=== PATIENT | female | born 1960 | race Caucasian/White ===

== ENCOUNTER 2017-02-24 15:59 | Emergency (ER) | payer OTHER ==
[~2017-02-24] VITALS: Ht 165.1 cm; Wt 93.9 kg
[~2017-02-24 15:59] MED LIST: ACET-2863 PO; AMLO10TA2 PO; IPRA14.7 IH; METO100T98 PO; NITR0.4T2 SL; OLAN5TAB29 PO; OMEP40EC1 PO; ONDA8ODT2 PO; PARO40TA65 PO; RIFA550T PO; TRAZ-307 PO; VITA20002 PO
[2017-02-24 16:18] VITALS: BP 125/76
[2017-02-24] MEDS ORDERED: KETOROLAC 30 MG/ML VIAL IVP ONE (17:35)
[2017-02-24 18:10] LABS: BASOPHILS # (AUTO) 0.1 K/uL (0.00-0.22); EOSINOPHILS # (AUTO) 0.1 K/uL (0-0.4); LYMPHOCYTES # (AUTO) 0.6 K/uL (2.5-16.5); MONOCYTES # (AUTO) 0.3 K/uL (0.8-1.0); PLATELET COUNT (AUTO) 68 K/uL (140-450)
[2017-02-24 18:14] LABS: BASOPHILS % (AUTO) 2.8 % (0.0-2.0); EOSINOPHILS % (AUTO) 3.4 % (0.0-4.0); HEMATOCRIT 26.5 % (36-48); HEMOGLOBIN 9.3 g/dL (12.0-16.0); LYMPHOCYTES % (AUTO) 23.7 % (20.5-51.1); MEAN CORPUSCULAR HEMOGLOBIN 35 pg (27-31); MEAN CORPUSCULAR HGB CONC 35 g/dL (33-37); MEAN CORPUSCULAR VOLUME 101 fL (80-94); NEUTROPHILS # (AUTO) 1.6 K/uL (1.8-7.7); NEUTROPHILS % (AUTO) 60.1 % (42.2-75.2); RED BLOOD CELL COUNT(AUTO) 2.63 MIL/uL (4.20-5.40); RED CELL DISTRIBUTION WIDTH 14.6 % (11.6-13.7); WHITE BLOOD COUNT (AUTO) 2.7 K/uL (4.8-10.8)
[2017-02-24] MEDS ORDERED: MECL-272 PO (18:15)
[2017-02-24] MEDS ORDERED: ALBU3SOL21 IH (18:15)
[2017-02-24] MEDS ORDERED: ISOS10TA9 PO (18:15)
[2017-02-24] MEDS ORDERED: FOLI1TAB90 PO (18:15)
[2017-02-24] MEDS ORDERED: COM5 PO (18:15)
[2017-02-24] MEDS ORDERED: TRAZ-286 PO (18:15)
[2017-02-24] MEDS ORDERED: VITD1000 PO (18:15)
[2017-02-24] MEDS ORDERED: VAS10 PO (18:15)
[2017-02-24] MEDS ORDERED: ACET-7169 PO (18:15)
[2017-02-24] MEDS ORDERED: DIVA500T1 PO (18:15)
[2017-02-24] MEDS ORDERED: ATI.5 PO (18:15)
[2017-02-24] MEDS ORDERED: TRAM50TA1 PO (18:15)
[2017-02-24] MEDS ORDERED: FLUO40CA6 PO (18:15)
[2017-02-24] MEDS ORDERED: SPIR25TA PO (18:15)
[2017-02-24] MEDS ORDERED: FERR325E14 PO (18:15)
[2017-02-24] MEDS ORDERED: OMEP20TC12 PO (18:15)
[2017-02-24] MEDS ORDERED: LACT10SO1 PO (18:15)
[2017-02-24 18:21] LABS: ANION GAP 9.7 (8-16); CARBON DIOXIDE 25.7 mmol/L (21-32); CREATININE 1.1 mg/dL (0.6-1.3); POTASSIUM 4.4 mmol/L (3.5-5.1)
[2017-02-24 18:27] LABS: ALBUMIN 2.5 g/dL (3.4-5.0); TOTAL BILIRUBIN 0.7 mg/dL (0.0-1.0)
[2017-02-24 18:32] LABS: APPEARANCE,URINE HAZY (CLEAR); BILIRUBIN,URINE 1+ (NEGATIVE); BLOOD, URINE NEGATIVE (NEGATIVE); COLOR,URINE YELLOW (YELLOW); LEUKOCYTE ESTERASE ,URINE NEGATIVE (NEGATIVE); NITRITE, URINE NEGATIVE (NEGATIVE); UGLUCOSE NEGATIVE (NEGATIVE)
[2017-02-24 18:36] LABS: PROTHROMBIN TIME 11.7 secs (10.8-13.4)
[2017-02-24 18:42] LABS: BARBITURATE, URINE NEG. ng/ml (NEG <=200); BENZODIAZEPINE, URINE NEG. ng/mL (NEG <=200); CANNABINOID, URINE NEG. ng/mL (NEG <=50); COCAINE, URINE NEG. ng/mL (NEG <=300); OPIATE, URINE NEG. ng/mL (NEG <=2000); PHENCYCLIDINE SCREEN,URINE NEG. ng/mL (NEG <=25)
[2017-02-24 18:57] LABS: RBC,URINE 0-5 (RARE) /HPF (0-5); WBC,URINE 0-5 (RARE) /HPF (0-5)
[2017-02-24 19:36] VITALS: BP 138/77
== END 2017-02-24 19:37 | disposition home or self-care (01) ==
LOC: MED 15:59
DX: K74.60 Unspecified cirrhosis of liver (principal); G93.40 Encephalopathy, unspecified; J45.909 Unspecified asthma, uncomplicated; I10 Essential (primary) hypertension; F41.9 Anxiety disorder, unspecified; F32.9 Major depressive disorder, single episode, unspecified; G40.909 Epilepsy, unspecified, not intractable, without status epilepticus; Z90.49 Acquired absence of other specified parts of digestive tract; Z88.6 Allergy status to analgesic agent; Z79.899 Other long term (current) drug therapy
CPT/HCPCS: 36415; 70450; 71045; 80053; 80305; 81001; 82140; 83690; 83880; 84484; 85025; 85610; 85730; 93005; 96374; 99285; J1885; Q0092

== ENCOUNTER 2017-03-02 10:23 | Observation (INO) | payer OTHER ==
[~2017-03-02] VITALS: Ht 165.1 cm; Wt 89.8 kg
[~2017-03-02 10:23] MED LIST changes: -ACET-2863 PO; +ACET-7169 PO; +ALBU3SOL21 IH; -AMLO10TA2 PO; +ATI.5 PO; +COM5 PO; +DIVA500T1 PO; +FERR325E14 PO; +FLUO40CA6 PO; +FOLI1TAB90 PO; -IPRA14.7 IH; +ISOS10TA9 PO; +LACT10SO1 PO; +MECL-272 PO; -METO100T98 PO; -NITR0.4T2 SL; -OLAN5TAB29 PO; +OMEP20TC12 PO; -OMEP40EC1 PO; -ONDA8ODT2 PO; -PARO40TA65 PO; -RIFA550T PO; +SPIR25TA PO; +TRAM50TA1 PO; +TRAZ-286 PO; -TRAZ-307 PO; +VAS10 PO; -VITA20002 PO; +VITD1000 PO
[2017-03-02 10:29] VITALS: BP 122/74
[2017-03-02] MEDS ORDERED: NACL 0.9% 1,000 ML IV ONE (11:00)
[2017-03-02] MEDS ORDERED: ALBUTEROL 0.083% 2.5 MG/3 ML NEBU INH ONE (11:05)
[2017-03-02 11:17] LABS: WHITE BLOOD COUNT (AUTO) 2.2 K/uL (4.8-10.8)
[2017-03-02 11:20] LABS: HEMATOCRIT 26.4 % (36-48); HEMOGLOBIN 9.2 g/dL (12.0-16.0); MEAN CORPUSCULAR HEMOGLOBIN 36 pg (27-31); MEAN CORPUSCULAR HGB CONC 35 g/dL (33-37); MEAN CORPUSCULAR VOLUME 103 fL (80-94); PLATELET COUNT (AUTO) 83 K/uL (140-450); RED BLOOD CELL COUNT(AUTO) 2.57 MIL/uL (4.20-5.40); RED CELL DISTRIBUTION WIDTH 15.2 % (11.6-13.7)
[2017-03-02] MEDS ORDERED: KETOROLAC 30 MG/ML VIAL IM ONE (11:25)
[2017-03-02] MEDS ORDERED: ACETAMINOPHEN EXTRA STRENGTH 500 MG TAB PO ONE (11:25)
[2017-03-02] MEDS ORDERED: KETOROLAC 30 MG/ML VIAL IVP ONE (11:25)
[2017-03-02 11:35] LABS: EOSINOPHILS % (MANUAL) 4 % (0-4); LYMPHOCYTES % (MANUAL) 21 % (20-46); MONOCYTES % (MANUAL) 11 % (5-12)
[2017-03-02 11:40] LABS: POTASSIUM 3.7 mmol/L (3.5-5.1)
[2017-03-02 11:41] LABS: ANION GAP 6.7 (8-16); TOTAL BILIRUBIN 1.5 mg/dL (0.0-1.0)
[2017-03-02 11:42] LABS: ALBUMIN 2.5 g/dL (3.4-5.0)
[2017-03-02] MEDS ORDERED: PROCHLORPERAZINE 5 MG TAB PO PRN (12:00)
[2017-03-02] MEDS ORDERED: ONDANSETRON 4 MG/2 ML VIAL IVP PRN (12:00)
[2017-03-02] MEDS ORDERED: ACETAMINOPHEN 325 MG TAB PO PRN (12:00)
[2017-03-02] MEDS ORDERED: ASPIRIN 325 MG TAB PO ONE (12:00)
[2017-03-02] MEDS ORDERED: LORazepam 0.5 MG TAB PO PRN (12:00)
[2017-03-02] MEDS ORDERED: LORazepam 2 MG/ML VIAL IVP PRN (12:00)
[2017-03-02] MEDS ORDERED: ALBUTEROL 0.083% 2.5 MG/3 ML NEBU IH PRN (12:00)
[2017-03-02] MEDS ORDERED: MECLIZINE 25 MG TAB PO PRN (12:00)
[2017-03-02 13:01] LABS: CREATINE KINASE MB 0.4 ng/mL (0-3.6)
[2017-03-02 14:00] VITALS: BP 133/59
[2017-03-02] MEDS ORDERED: AZITHROMYCIN 500 MG in DEXTROSE 5% 250 ML IV SCH (14:00)
[2017-03-02] MEDS: traMADol 50 MG TAB PO PRN (14:52)
[2017-03-02] MEDS: ALBUTEROL SULFATE/IPRATROPIU 3 ML SOL IH SCH ×2 (15:17→20:32)
[2017-03-02 16:00] VITALS: BP 110/77
[2017-03-02] MEDS: FERROUS SULFATE 325 MG TABEC PO SCH (16:30)
[2017-03-02 20:00] VITALS: BP 113/65
[2017-03-02] MEDS ORDERED: HYDROcodone/APAP 5/325 MG 1 TAB TAB PO PRN (20:20)
[2017-03-02] MEDS ORDERED: DIVALPROEX 500 MG TABER PO SCH (21:00)
[2017-03-02] MEDS ORDERED: traZODone 50 MG TAB PO SCH (21:00)
[2017-03-02] MEDS: SPIRONOLACTONE 25 MG TAB PO SCH (21:10)
[2017-03-02] MEDS: ISOSORBIDE DINITRATE 10 MG TAB PO SCH (21:11)
[2017-03-03] VITALS: BP 120/76
[2017-03-03] MEDS: traMADol 50 MG TAB PO PRN (00:31)
[2017-03-03 04:00] VITALS: BP 125/79
[2017-03-03 04:22] LABS: HEMATOCRIT 22.3 % (36-48); HEMOGLOBIN 7.7 g/dL (12.0-16.0); MEAN CORPUSCULAR HEMOGLOBIN 36 pg (27-31); MEAN CORPUSCULAR HGB CONC 35 g/dL (33-37); MEAN CORPUSCULAR VOLUME 104 fL (80-94); PLATELET COUNT (AUTO) 68 K/uL (140-450); RED BLOOD CELL COUNT(AUTO) 2.15 MIL/uL (4.20-5.40); RED CELL DISTRIBUTION WIDTH 15.1 % (11.6-13.7); WHITE BLOOD COUNT (AUTO) 2.8 K/uL (4.8-10.8)
[2017-03-03 04:35] LABS: CARBON DIOXIDE 28.1 mmol/L (21-32); POTASSIUM 4.1 mmol/L (3.5-5.1)
[2017-03-03 05:29] LABS: EOSINOPHILS % (MANUAL) 5 % (0-4); LYMPHOCYTES % (MANUAL) 34 % (20-46); MONOCYTES % (MANUAL) 12 % (5-12)
[2017-03-03] MEDS: ALBUTEROL SULFATE/IPRATROPIU 3 ML SOL IH SCH ×2 (07:37→10:14)
[2017-03-03 08:00] VITALS: BP 125/69
[2017-03-03] MEDS ORDERED: ASPIRIN 81 MG TAB.CHEW PO SCH (09:00)
[2017-03-03] MEDS ORDERED: FLUoxetine 20 MG CAP PO SCH (09:00)
[2017-03-03] MEDS ORDERED: CHOLECALCIFEROL 1,000 IU TAB PO SCH (09:00)
[2017-03-03] MEDS ORDERED: ENALAPRIL 10 MG TAB PO SCH (09:00)
[2017-03-03] MEDS ORDERED: FOLIC ACID 1 MG TAB PO SCH (09:00)
[2017-03-03] MEDS: SPIRONOLACTONE 25 MG TAB PO SCH (09:25)
[2017-03-03] MEDS: FERROUS SULFATE 325 MG TABEC PO SCH (09:27)
[2017-03-03] MEDS: ISOSORBIDE DINITRATE 10 MG TAB PO SCH (09:27)
[2017-03-03 12:00] VITALS: BP 123/67
[2017-03-03 12:42] LABS: CREATINE KINASE MB 0.4 ng/mL (0-3.6)
== END 2017-03-03 13:40 | disposition home or self-care (01) ==
LOC: MED 10:23 → INTOOBSV 12:05 → MTU 12:05
PROVIDERS: ADMIT Hospitalist; ATTEND Hospitalist
DX: R07.2 Precordial pain (principal); J06.9 Acute upper respiratory infection, unspecified; K74.60 Unspecified cirrhosis of liver; B19.20 Unspecified viral hepatitis C without hepatic coma; F32.9 Major depressive disorder, single episode, unspecified; F41.9 Anxiety disorder, unspecified
CPT/HCPCS: 36415; 71045; 80048; 80053; 82550; 82553; 83735; 84484; 85025; 87081; 87804; 93005; 94640; 94760; 96361; 96365; 96367; 96375; 99285; G0378; J0456; J0696; J1885; J7030; J7060; J7613; J7620; Q0092; 96374

== ENCOUNTER 2017-03-08 15:58 | Emergency (ER) | payer OTHER ==
[~2017-03-08] VITALS: Ht 165.1 cm; Wt 88.9 kg
[2017-03-08 16:22] VITALS: BP 116/70
[2017-03-08] MEDS ORDERED: TRAMADOL HCL 50 MG TABLET (16:24)
[2017-03-08] MEDS ORDERED: BENZONATATE 100 MG CAPSULE (16:24)
[2017-03-08] MEDS ORDERED: ISOSORBIDE DINITRATE 5 MG (16:24)
[2017-03-08 17:16] LABS: BASOPHILS # (AUTO) 0.2 K/uL (0.00-0.22); EOSINOPHILS # (AUTO) 0.1 K/uL (0-0.4); HEMATOCRIT 31.3 % (36-48); HEMOGLOBIN 10.4 g/dL (12.0-16.0); LYMPHOCYTES # (AUTO) 1.4 K/uL (2.5-16.5); MEAN CORPUSCULAR HEMOGLOBIN 35 pg (27-31); MEAN CORPUSCULAR HGB CONC 33 g/dL (33-37); MEAN CORPUSCULAR VOLUME 105 fL (80-94); MONOCYTES # (AUTO) 0.5 K/uL (0.8-1.0); NEUTROPHILS # (AUTO) 1.7 K/uL (1.8-7.7); PLATELET COUNT (AUTO) 120 K/uL (140-450); RED BLOOD CELL COUNT(AUTO) 2.98 MIL/uL (4.20-5.40); RED CELL DISTRIBUTION WIDTH 14.9 % (11.6-13.7); WHITE BLOOD COUNT (AUTO) 3.9 K/uL (4.8-10.8)
[2017-03-08 17:43] LABS: ALBUMIN 2.6 g/dL (3.4-5.0); ANION GAP 10.5 (8-16); CARBON DIOXIDE 27.5 mmol/L (21-32)
[2017-03-08] MEDS ORDERED: ALBUTEROL SULFATE/IPRATROPIU 3 ML SOL IH ONE (21:20)
[2017-03-08] MEDS ORDERED: DEXAMETHASONE 10 MG/ML VIAL IM ONE (21:20)
[2017-03-08 21:37] LABS: APPEARANCE,URINE CLEAR (CLEAR); BILIRUBIN,URINE NEGATIVE (NEGATIVE); BLOOD, URINE NEGATIVE (NEGATIVE); COLOR,URINE YELLOW (YELLOW); LEUKOCYTE ESTERASE ,URINE NEGATIVE (NEGATIVE); NITRITE, URINE NEGATIVE (NEGATIVE); UGLUCOSE NEGATIVE (NEGATIVE)
[2017-03-08] MEDS ORDERED: IBUPROFEN 600 MG TAB PO ONE (21:50)
[2017-03-08] MEDS ORDERED: ACETAMINOPHEN EXTRA STRENGTH 500 MG TAB PO ONE (21:50)
[2017-03-08] MEDS ORDERED: DICYCLOMINE HCL LIQUID 10 MG/5 ML UDC PO ONE (23:15)
[2017-03-08] MEDS ORDERED: ALUMINUM HYD/MAG/SIMETHICONE 30 ML UDC PO ONE (23:15)
[2017-03-08] MEDS ORDERED: LIDOCAINE VISCOUS 2% 20 ML UDC PO ONE (23:15)
[2017-03-09] MEDS ORDERED: MORPHINE SULFATE 10 MG/ML SYR IM ONE (00:05)
[2017-03-09 00:33] VITALS: BP 111/73
== END 2017-03-09 00:33 | disposition home or self-care (01) ==
LOC: MED 15:58
DX: A08.4 Viral intestinal infection, unspecified (principal); K21.9 Gastro-esophageal reflux disease without esophagitis; D61.818 Other pancytopenia; D64.9 Anemia, unspecified; J45.909 Unspecified asthma, uncomplicated; I10 Essential (primary) hypertension; Z90.49 Acquired absence of other specified parts of digestive tract
CPT/HCPCS: 36415; 74022; 74176; 80053; 81003; 81025; 83690; 85025; 87804; 94640; 96372; 99285; J1100; J2270; J7620

== ENCOUNTER 2017-04-11 16:06 | Emergency (ER) | payer OTHER ==
[~2017-04-11] VITALS: Ht 165.1 cm; Wt 93.9 kg
[~2017-04-11 16:06] MED LIST changes: +BENZONATATE 100 MG CAPSULE; +ISOSORBIDE DINITRATE 5 MG; +TRAMADOL HCL 50 MG TABLET
[2017-04-11 16:25] VITALS: BP 126/73
[2017-04-11] MEDS ORDERED: MIDAZOLAM 2 MG/2 ML VIAL IM ONE (17:40)
[2017-04-11] MEDS ORDERED: LORazepam 2 MG/ML VIAL IM ONE (17:50)
[2017-04-11 18:40] VITALS: BP 126/73
== END 2017-04-11 18:40 | disposition home or self-care (01) ==
LOC: MED 16:06
DX: G25.2 Other specified forms of tremor (principal); J45.909 Unspecified asthma, uncomplicated; I10 Essential (primary) hypertension; F41.9 Anxiety disorder, unspecified; Z79.899 Other long term (current) drug therapy; Z91.018 Allergy to other foods
CPT/HCPCS: 82948; 96372; 99283; J2060; J2250

== ENCOUNTER 2017-05-07 16:19 | Inpatient (IN) | payer OTHER ==
[~2017-05-07] VITALS: Ht 165.1 cm; Wt 89.4 kg
[2017-05-07 16:28] VITALS: BP 96/58
--- NOTE | 2017-05-07 16:31 | NUR ---
Pt presents to ED with SOB, dizziness, and abdominal pain x1 day. Pt states loosing balance and having SOB at home x1 day. Pt respirations clear and regular throughout. Pt has cane but needs assist for transfer from wheel chair to ED bed. A&Ox4. VSS. ER MD aware. Continue to monitor.
[2017-05-07] MEDS ORDERED: NACL 0.9% 1,000 ML IV ONE (17:20)
[2017-05-07 17:36] LABS: APPEARANCE,URINE CLEAR (CLEAR); BILIRUBIN,URINE 1+ (NEGATIVE); BLOOD, URINE NEGATIVE (NEGATIVE); COLOR,URINE YELLOW (YELLOW); LEUKOCYTE ESTERASE ,URINE NEGATIVE (NEGATIVE); NITRITE, URINE NEGATIVE (NEGATIVE); UGLUCOSE NEGATIVE (NEGATIVE)
[2017-05-07 17:42] LABS: RBC,URINE 0-5 (RARE) /HPF (0-5); WBC,URINE 0-5 (RARE) /HPF (0-5)
--- NOTE | 2017-05-07 17:47 | NUR ---
Pt escorted to radiology via wheel chair with tech
[2017-05-07 17:51] LABS: BASOPHILS # (AUTO) 0.1 K/uL (0.00-0.22); BASOPHILS % (AUTO) 2.1 % (0.0-2.0); EOSINOPHILS # (AUTO) 0.1 K/uL (0-0.4); EOSINOPHILS % (AUTO) 3.7 % (0.0-4.0); HEMATOCRIT 30.9 % (36-48); HEMOGLOBIN 10.2 g/dL (12.0-16.0); LYMPHOCYTES # (AUTO) 0.9 K/uL (2.5-16.5); LYMPHOCYTES % (AUTO) 32.2 % (20.5-51.1); MEAN CORPUSCULAR HEMOGLOBIN 34 pg (27-31); MEAN CORPUSCULAR HGB CONC 33 g/dL (33-37); MONOCYTES # (AUTO) 0.2 K/uL (0.8-1.0); MONOCYTES % (AUTO) 9.3 % (1.7-9.3); NEUTROPHILS # (AUTO) 1.4 K/uL (1.8-7.7); NEUTROPHILS % (AUTO) 52.7 % (42.2-75.2); PLATELET COUNT (AUTO) 81 K/uL (140-450); RED BLOOD CELL COUNT(AUTO) 2.98 MIL/uL (4.20-5.40); RED CELL DISTRIBUTION WIDTH 12.6 % (11.6-13.7); WHITE BLOOD COUNT (AUTO) 2.7 K/uL (4.8-10.8)
[2017-05-07 18:05] LABS: ANION GAP 9.4 (8-16); CARBON DIOXIDE 26.9 mmol/L (21-32); CREATININE 1.2 mg/dL (0.6-1.3); POTASSIUM 4.3 mmol/L (3.5-5.1)
[2017-05-07 18:10] LABS: ALBUMIN 2.5 g/dL (3.4-5.0)
[2017-05-07] MEDS ORDERED: MORPHINE SULFATE 4 MG/ML SYR IVP ONE (18:15)
--- NOTE | 2017-05-07 19:15 | NUR ---
received report from ana cristina pt AWAKE, ALERT. BP 116/61. O2 SAT 98%.
[2017-05-07] MEDS ORDERED: ONDANSETRON 4 MG/2 ML VIAL IVP PRN (20:00)
[2017-05-07] MEDS ORDERED: ACETAMINOPHEN 325 MG TAB PO PRN (20:00)
[2017-05-07] MEDS ORDERED: HYDROcodone/APAP 5/325 MG 1 TAB TAB PO PRN ×2 (20:00→20:05)
--- NOTE | 2017-05-07 20:20 | NUR ---
TRANSFERRED PT TO 107 A BY GRAHAM,PT AWAKE, ALERT, NO S/S OF RESPIRATORY DISTRESS NOTED. BEDSIDE REPORT GIVEN.
--- NOTE | 2017-05-07 20:20 | NUR ---
;RECEIVED PT FROM ER VIA GRAHAM REPORT GIVEN AT BED SIDE PT IS AAOX4 AMBULATES WITH VERMIN EXTERMINATOR ON CANDLE POURER SR ,HL ON LEFT AC PATENT MRSA NARES PROTOCOL TAKEN AND SENT TO LAB. PT USING BSC VOIDING WELLPT IS ORIENTED TO THE FLOOR CALL LIGHT WITHIN REACH
[2017-05-07 20:30] VITALS: BP 110/62
[2017-05-07 20:57] LABS: BARBITURATE, URINE NEG. ng/ml (NEG <=200); BENZODIAZEPINE, URINE NEG. ng/mL (NEG <=200); CANNABINOID, URINE NEG. ng/mL (NEG <=50); COCAINE, URINE NEG. ng/mL (NEG <=300); OPIATE, URINE NEG. ng/mL (NEG <=2000); PHENCYCLIDINE SCREEN,URINE NEG. ng/mL (NEG <=25)
--- NOTE | 2017-05-07 23:00 | NUR ---
PT IS ASSISTED TO USED BSC VOIDING WELL NOT DISTRESS NOTED ON TELEMETRY SR
[2017-05-07] MEDS: MORPHINE SULFATE 2 MG/ML SYR IVP PRN (23:43)
[2017-05-07] MEDS: ZOLPIDEM 5 MG TAB PO PRN (23:44)
[2017-05-08] VITALS: BP 91/50
--- NOTE | 2017-05-08 01:00 | NUR ---
AFTER PAIN MEDIC GIVEN PT SLEEPS QUIET NOT DISTRESS NOTE ON TELEMETRY SR
[2017-05-08] MEDS: NACL 0.9% 1,000 ML IV SCH ×2 (03:42→13:00)
[2017-05-08 04:00] VITALS: BP 90/43
--- NOTE | 2017-05-08 04:00 | NUR ---
SPONGE BATH GIVEN LINEN CHANGED PT ON TELEMETRY SB IV ON LEFT AC INFUSING WELL NOT DISTRESS NOTED
--- NOTE | 2017-05-08 05:39 | NUR ---
PT USING BSC VOIDING WELL NOT DISTRESS NOTED
--- NOTE | 2017-05-08 06:37 | NUR ---
PT RESTING ON BED RESTING ON BED ON TELEMETRY SR DENIES ANY KLPAIN AT THIS;TIME PT WILL BE ENDORSED TO DAY SHIFT NURSE TO CONTINUITY OF CARE
[2017-05-08 06:58] LABS: HEMATOCRIT 26.3 % (36-48); HEMOGLOBIN 8.9 g/dL (12.0-16.0); MEAN CORPUSCULAR HEMOGLOBIN 35 pg (27-31); MEAN CORPUSCULAR HGB CONC 34 g/dL (33-37); MEAN CORPUSCULAR VOLUME 103.4 fL (80-94); PLATELET COUNT (AUTO) 67 K/uL (140-450); RED BLOOD CELL COUNT(AUTO) 2.54 MIL/uL (4.20-5.40); RED CELL DISTRIBUTION WIDTH 12.6 % (11.6-13.7); WHITE BLOOD COUNT (AUTO) 2.7 K/uL (4.8-10.8)
--- NOTE | 2017-05-08 07:12 | NUR ---
RECEIVED REPORT FROM WAIVER ANALYST NURSE ANDREINA AT BEDSIDE FOR CONTINUITY OF CARE. PT IS AWAKE AND ORIENTED X3. INTRODUCED SELF AND UPDATED BOARD. LUNG SOUNDS CLEAR ON AUSCULTATION. PT DENIES PAIN. STATED DIZZINESS STILL THERE BUT BETTER LYING DOWN. RESTING COMFORTABLY IN BED. IV TO L AC 20G INTACT. NS AT 100ML/HR. SKIN WARM AND DRY. BED IN LOW POSITION, WHEELS LOCKED, CALL LIGHT WITHIN REACH. BSC NEXT TO BED. WILL CONTINUE TO MONITOR.
[2017-05-08 08:00] VITALS: BP 98/42
[2017-05-08] MEDS ORDERED: MECLIZINE 25 MG TAB PO PRN (08:20)
[2017-05-08] MEDS ORDERED: NON-FORMULARY ITEM (Oxycodone HCl/Acetaminophen (Oxycodone-Acetaminophen 10-325) 1 TAB) PO PRN (08:20)
[2017-05-08] MEDS ORDERED: LORazepam 0.5 MG TAB PO PRN (08:20)
[2017-05-08] MEDS ORDERED: traMADol 50 MG TAB PO PRN (08:20)
[2017-05-08 08:40] LABS: ALBUMIN 2.1 g/dL (3.4-5.0); ANION GAP 9.3 (8-16); CARBON DIOXIDE 27.1 mmol/L (21-32); CREATININE 1.2 mg/dL (0.6-1.3); POTASSIUM 4.4 mmol/L (3.5-5.1); TOTAL BILIRUBIN 0.7 mg/dL (0.0-1.0)
[2017-05-08] MEDS ORDERED: OMEPRAZOLE PO SCH (09:00)
[2017-05-08 09:16] LABS: EOSINOPHILS % (MANUAL) 3 % (0-4); LYMPHOCYTES % (MANUAL) 32 % (20-46); MONOCYTES % (MANUAL) 6 % (5-12)
[2017-05-08] MEDS ORDERED: FLUoxetine 20 MG CAP PO SCH (10:12)
[2017-05-08] MEDS ORDERED: FOLIC ACID 1 MG TAB PO SCH (10:19)
[2017-05-08] MEDS ORDERED: CHOLECALCIFEROL 1,000 IU TAB PO SCH (10:25)
--- NOTE | 2017-05-08 10:30 | NUR ---
PT UP AND OUT OF BED WITH PHYSICAL THERAPY. SEEN WALKING DOWN RICKETTS WITH WALKER AND STEADY GAIT.
[2017-05-08] MEDS: FAMOTIDINE 20 MG/2 ML VIAL IVP SCH (10:34)
--- NOTE | 2017-05-08 11:08 | NUR ---
PATIENT HAS BEEN SCREENED AND CATEGORIZED MODERATE NUTRITION RISK. PATIENT WILL BE SEEN WITHIN 3-5 DAYS OF ADMISSION. 05/10/17 - 05/12/[address]
--- NOTE | 2017-05-08 11:15 | NUR ---
CALLED PT'S DAUGHTER AND INFORMED HER FOR D/C TODAY AND PROBATION AND PAROLE OFFICER TIME 1PM Addendum: 05/08/17 at 1117 by Kriss Ward RN CHARTED ON WRONG PT
[2017-05-08] MEDS ORDERED: oxyCODONE/APAP 5/325 MG 1 TAB TAB PO PRN (11:20)
[2017-05-08] MEDS ORDERED: ALBUTEROL SULFATE/IPRATROPIU 3 ML SOL IH SCH (11:30)
[2017-05-08 12:00] VITALS: BP 106/60
[2017-05-08] MEDS ORDERED: NON-FORMULARY ITEM (Lactulose 30 ML) PO SCH (12:00)
[2017-05-08] MEDS: LACTULOSE 20 GM/30 ML UDC PO SCH ×2 (12:11→17:08)
[2017-05-08] MEDS: MORPHINE SULFATE 2 MG/ML SYR IVP PRN ×2 (13:30→19:33)
--- NOTE | 2017-05-08 13:30 | NUR ---
PT COMPLAINED OF PAIN ON ABD 10/21. PT REQUESTED MORPHINE FOR PAIN. ADMINISTERED MORPHINE IVP. PT TOLERATED WELL. SITTING UP IN BED. NO LABORED BREATHING. BED IN LOW POSITION, WHEELS LOCKED, CALL LIGHT WITHIN REACH. WILL CONTINUE TO MONITOR.
[2017-05-08 15:32] LABS: FOLIC ACID > 20.00 ng/mL (>3.0)
[2017-05-08 16:00] VITALS: BP 118/58
--- NOTE | 2017-05-08 16:24 | NUR ---
CHECKED ON PT IN ROOM. PT GOT UP TO USE BSC WITH STANDBY ASSIST. PT SITTING UP IN BED. TALKING ON PHONE. NO COMPLAINTS AT THIS TIME. WILL CONTINUE TO MONITOR.
--- NOTE | 2017-05-08 18:00 | NUR ---
PT IS EATING DINNER TRAY. PT ASKED FOR HAMBURGER. EDUCATED PT ON CARDIAC DIET AND THAT SHE CANNOT HAVE A HAMBURGER. VERBALIZED UNDERSTANDING. ON THE PHONE RIGHT NOW. NO SIGNS OF DISTRESS. CALL LIGHT WITHIN REACH. WILL CONTINUE MONITOR.
--- NOTE | 2017-05-08 19:28 | NUR ---
ENDORSED PT TO MINE SAFETY MANAGER NURSE PATRICIA AT BEDSIDE FOR CONTINUITY OF CARE. PT IN STABLE CONDITION.
--- NOTE | 2017-05-08 19:33 | NUR ---
RECEIVED PT AWAKE ON BED, COMPLAINING OF PAIN, VITAL SIGNS STABLE, MEDICATED PRN FOR PAIN WITH MORPHINE IVP, IVF INFUSING WELL, PLAN OF CARE DISCUSSED, SAFETY MEASURES IN PLACE, CALL LIGHT WITHIN REACH.
[2017-05-08 20:00] VITALS: BP 119/67
[2017-05-08] MEDS: diphenhydrAMINE 12.5 MG/5 ML UDC PO SCH (20:35)
[2017-05-08] MEDS: ZOLPIDEM 5 MG TAB PO PRN (20:44)
[2017-05-08] MEDS ORDERED: DIVALPROEX 500 MG TABER PO SCH (21:00)
[2017-05-08] MEDS ORDERED: traZODone 50 MG TAB PO SCH (21:00)
--- NOTE | 2017-05-08 22:38 | NUR ---
PT COMPLAINING OF ABDOMINAL PAIN, MADE AWARE THAT MORPHINE IS NOT YET DUE, MADE AWARE OF NEXT DUE TIME, OFFERED PAIN PILL BUT PT REFUSED, WILL WAIT FOR MORPHINE DOSE, REPOSITION FOR COMFORT, MONITORED CLOSELY.
--- NOTE | 2017-05-08 23:40 | NUR ---
PT SLEEPING, EASILY AROUSABLE BUT DISORIENTED, REORIENT TO TIME AND PLACE, VITAL SIGNS STABLE, NO SOB NOTED, INQUIRING IF IT'S TIME FOR HER MORPHINE, MADE AWARE OF DUE TIME, IVF INFUSING WELL, CONTINUE TO MONITOR CLOSELY.
[2017-05-09] VITALS: BP 102/53
[2017-05-09] MEDS: LACTULOSE 20 GM/30 ML UDC PO SCH ×3 (00:26→11:39)
[2017-05-09] MEDS: NACL 0.9% 1,000 ML IV SCH ×2 (00:27→09:00)
--- NOTE | 2017-05-09 00:30 | NUR ---
ASSISTED TO BEDSIDE COMMODE, VOIDED FREELY, , WILL MEDICATE PRN FOR PAIN WHEN DUE.
--- NOTE | 2017-05-09 03:40 | NUR ---
PT SLEEPING, EASILY AORUSABLE, VITAL SIGNS STABLE, NO SIGNS OF PAIN, IVF INFUSING WELL, MONITORED CLOSELY.
[2017-05-09 04:00] VITALS: BP 106/58
[2017-05-09] MEDS: MORPHINE SULFATE 2 MG/ML SYR IVP PRN ×2 (05:23→11:40)
--- NOTE | 2017-05-09 05:30 | NUR ---
ASSISTED TO BEDSIDE COMMODE, WITH MODERATE BM, MEDICATED PRN FOR PAIN WITH MORPHINE IVP, DUE LACTULOSE TAKEN, MONITORED CLOSELY.
--- NOTE | 2017-05-09 07:27 | NUR ---
PT SLEEPING, NO SIGNS OF DISTRESS, BEDSIDE REPORT GIVEN TO RUSS LAY FOR CONTINUITY OF CARE.
--- NOTE | 2017-05-09 07:28 | NUR ---
RECEIVED REPORT FROM SYSTEMS SOFTWARE MANAGER NURSE PATRICIA AT BEDSIDE FOR CONTINUITY OF CARE. PT IS AWAKE AND ORIENTED. INTRODUCED SELF AND UPDATED BOARD. NO SOB OR RESPIRATORY DISTRESS. LUNG SOUND CLEAR ON AUSCULTATION. ON RA O2 SAT 96%. PT ASKING FOR PAIN MEDICATION. REMINDED PT THAT SHE ALREADY HAD BEEN MEDICATED. PT VERBALIZED UNDERSTAING. BSC NEXT TO BED. CALL LIGHT WITHIN REACH. WILL CONTINUE TO MONITOR.
[2017-05-09 07:36] LABS: HEMATOCRIT 29.3 % (36-48); HEMOGLOBIN 9.7 g/dL (12.0-16.0); MEAN CORPUSCULAR HEMOGLOBIN 34 pg (27-31); MEAN CORPUSCULAR HGB CONC 33 g/dL (33-37); MEAN CORPUSCULAR VOLUME 103.9 fL (80-94); PLATELET COUNT (AUTO) 76 K/uL (140-450); RED BLOOD CELL COUNT(AUTO) 2.82 MIL/uL (4.20-5.40)
[2017-05-09 07:43] LABS: ALBUMIN 2.3 g/dL (3.4-5.0); ANION GAP 9.8 (8-16); CARBON DIOXIDE 25.5 mmol/L (21-32); CREATININE 1.1 mg/dL (0.6-1.3); POTASSIUM 4.3 mmol/L (3.5-5.1); TOTAL BILIRUBIN 0.8 mg/dL (0.0-1.0)
[2017-05-09 08:00] VITALS: BP 128/58
--- NOTE | 2017-05-09 08:55 | NUR ---
CM NOTE INITIAL REVIEW FAXED TO [facility] [phone] YUE # [phone]
[2017-05-09] MEDS ORDERED: PANTOPRAZOLE 40 MG TABEC PO SCH (09:00)
[2017-05-09] MEDS ORDERED: FLUoxetine 20 MG CAP PO SCH ×2 (09:00)
[2017-05-09] MEDS ORDERED: FOLIC ACID 1 MG TAB PO SCH (09:00)
[2017-05-09] MEDS ORDERED: CHOLECALCIFEROL 1,000 IU TAB PO SCH (09:00)
[2017-05-09] MEDS: FAMOTIDINE 20 MG/2 ML VIAL IVP SCH (09:17)
[2017-05-09] MEDS: diphenhydrAMINE 12.5 MG/5 ML UDC PO SCH (09:39)
--- NOTE | 2017-05-09 10:30 | NUR ---
PT MOVED TO ROOM 108B. ASSISTED TO BATHROOM. WILL CONTINUE TO MONITOR.
--- NOTE | 2017-05-09 11:40 | NUR ---
PT UP AND OUT OF BED WITH PHYSICAL THERAPY. WALKING DOWN RICKETTS WITH STEADY GAIT.
[2017-05-09 12:00] VITALS: BP 110/72
[2017-05-09 13:13] LABS: EOSINOPHILS % (MANUAL) 9 % (0-4); LYMPHOCYTES % (MANUAL) 38 % (20-46); MONOCYTES % (MANUAL) 16 % (5-12)
[2017-05-09] MEDS ORDERED: ACET-2869 PO (14:26)
[2017-05-09] MEDS ORDERED: ZOLP5TAB1 PO (14:28)
--- NOTE | 2017-05-09 15:50 | NUR ---
PT D/C TO GO HOME. GAVE D/C FORMS, INSTRUCTIONS, RX, AND FOLLOW UP APPOINTMENT TO PT. PT VERBALIZED UNDERSTANDING AND SIGNED FORMS. D/C IV TO L WRIST AND L FA. IV CATHETER TIPS INTACT. APPLIED DRESSING AND PRESSURE TO SITE. NO BLEEDING NOTED. REMOVED ID BAND AND TELE MONITOR. PT CHANGED IN OWN CLOTHES AND LEFT WITH ALL PERSONAL BELONGINGS. LEFT UNIT VIA WHEELCHAIR ACCOMPANIED BY SPECIMEN ACCESSIONER. LEFT IN STABLE CONDITION.
--- NOTE | 2017-05-10 13:12 | NUR ---
D/C summary faxed to [facility] at [phone]
== END 2017-05-09 15:50 | disposition home or self-care (01) | DRG 207 ==
LOC: MED 16:19 → MTU 20:03
PROVIDERS: ADMIT Hospitalist; ATTEND Hospitalist
DX: I95.2 Hypotension due to drugs (principal); E43 Unspecified severe protein-calorie malnutrition; K70.30 Alcoholic cirrhosis of liver without ascites; K31.84 Gastroparesis; I10 Essential (primary) hypertension; F32.9 Major depressive disorder, single episode, unspecified; F41.9 Anxiety disorder, unspecified; J45.909 Unspecified asthma, uncomplicated; G89.29 Other chronic pain; T50.2X5A Adverse effect of carbonic-anhydrase inhibitors, benzothiadiazides and other diuretics, initial encounter; Z91.018 Allergy to other foods; Z79.899 Other long term (current) drug therapy; Z90.49 Acquired absence of other specified parts of digestive tract; Z28.21 Immunization not carried out because of patient refusal; D46.9 Myelodysplastic syndrome, unspecified
CPT/HCPCS: 36415; 70450; 74018; 80053; 80305; 81001; 82140; 82150; 82607; 82746; 82948; 83690; 85025; 87081; 96374; 97110; 97116; 97530; 99285; J2270; J2405; J3490; J7030; J8597; Q0092; Q0163

== ENCOUNTER 2017-06-06 18:05 | Emergency (ER) | payer OTHER ==
[~2017-06-06] VITALS: Ht 165.1 cm; Wt 88.9 kg
[~2017-06-06 18:05] MED LIST changes: +ACET-2869 PO; -ALBU3SOL21 IH; -COM5 PO; -FERR325E14 PO; -ISOS10TA9 PO; -SPIR25TA PO; -VAS10 PO; +ZOLP5TAB1 PO
[2017-06-06 18:30] VITALS: BP 118/72
--- NOTE | 2017-06-06 18:34 | NUR ---
pt to lobby awaiting avaiable bed. gcs=15. rr are even and unlabored. vss. no acute distress at this time.
--- NOTE | 2017-06-06 19:10 | NUR ---
TO ER CHAIR A
--- NOTE | 2017-06-06 19:27 | NUR ---
Patient being evaluated by DR. PA at bedside.
--- NOTE | 2017-06-06 19:30 | NUR ---
57Y/F PT. PRESENTS TO ED WITH C/O COUGH. ALSO STATES ABDOMINAL PAIN AND DIZZINESS. HX. LIVER CHIRRHOSIS, DEPRESSION. AAO X4, AMBULATORY WITH STEDAY GAIT. GCS 15. RESPIRATIONSS RA, EVEN AND UNLABORED, C/O NON PRODUCTIVE COUGH. ABDOMEN SOFT, NON TENDER, ACTIVE BS X 4. C/O BACK PAIN AND ABDOMINAL PAIN 10/10. VSS, ER MD MADE AWARE OF PT. STATUS.
[2017-06-06] MEDS ORDERED: NACL 0.9% 1,000 ML IV ONE (19:31)
[2017-06-06] MEDS ORDERED: ONDANSETRON 4 MG/2 ML VIAL IVP ONE (19:35)
[2017-06-06] MEDS ORDERED: MORPHINE SULFATE 4 MG/ML SYR IVP ONE (19:35)
[2017-06-06 19:54] LABS: APPEARANCE,URINE SL CLOUDY (CLEAR); BLOOD, URINE TRACE-I (NEGATIVE); COLOR,URINE YELLOW (YELLOW); LEUKOCYTE ESTERASE ,URINE NEGATIVE (NEGATIVE); NITRITE, URINE NEGATIVE (NEGATIVE); UGLUCOSE NEGATIVE (NEGATIVE)
[2017-06-06 20:04] LABS: BILIRUBIN,URINE NEGATIVE (NEGATIVE)
[2017-06-06 20:06] LABS: RBC,URINE 3-10 (FEW) /HPF (0-5); URINE AMORPHOUS URATE 2+ /HPF (None Seen); WBC,URINE 0-5 (RARE) /HPF (0-5)
[2017-06-06 20:10] LABS: BASOPHILS % (AUTO) 0.6 % (0.0-2.0); EOSINOPHILS # (AUTO) 0.2 K/uL (0-0.4); EOSINOPHILS % (AUTO) 4.8 % (0.0-4.0); HEMATOCRIT 29.8 % (36-48); HEMOGLOBIN 10.2 g/dL (12.0-16.0); LYMPHOCYTES # (AUTO) 1.2 K/uL (2.5-16.5); LYMPHOCYTES % (AUTO) 35.7 % (20.5-51.1); MEAN CORPUSCULAR HEMOGLOBIN 35 pg (27-31); MEAN CORPUSCULAR HGB CONC 34 g/dL (33-37); MEAN CORPUSCULAR VOLUME 103.4 fL (80-94); MONOCYTES # (AUTO) 0.4 K/uL (0.8-1.0); MONOCYTES % (AUTO) 12.7 % (1.7-9.3); NEUTROPHILS # (AUTO) 1.6 K/uL (1.8-7.7); NEUTROPHILS % (AUTO) 46.2 % (42.2-75.2); PLATELET COUNT (AUTO) 78 K/uL (140-450); RED BLOOD CELL COUNT(AUTO) 2.88 MIL/uL (4.20-5.40); RED CELL DISTRIBUTION WIDTH 13.2 % (11.6-13.7); WHITE BLOOD COUNT (AUTO) 3.5 K/uL (4.8-10.8)
[2017-06-06 20:20] LABS: ANION GAP 12.6 (8-16); CARBON DIOXIDE 23.8 mmol/L (21-32); CREATININE 1.3 mg/dL (0.6-1.3); POTASSIUM 4.4 mmol/L (3.5-5.1)
[2017-06-06 20:25] LABS: TOTAL BILIRUBIN 0.8 mg/dL (0.0-1.0)
--- NOTE | 2017-06-06 20:35 | NUR ---
MOVED TO ER BED 2
--- NOTE | 2017-06-06 20:50 | NUR ---
Patient appears to be resting comfortably in bed. Vital Signs within normal limits. Respirations even and unlabored.
[2017-06-06 21:18] VITALS: BP 111/66
--- NOTE | 2017-06-06 21:18 | NUR ---
Note ericone in EDM - 06/06/17 at 2119 by MED D Patient discharged with v/s stable. Written and verbal after care instructions given and explained. Patient alert, oriented and verbalized understanding of instructions. Ambulatory with steady gait. All questions addressed prior to discharge. ID band removed. Patient advised to follow up with PMD. Rx of BENTYL 20 MG given. Patient educated on indication of medication including possible reaction and side effects. Opportunity to ask questions provided and answered.
== END 2017-06-06 21:18 | disposition home or self-care (01) ==
LOC: MED 18:05
DX: R10.30 Lower abdominal pain, unspecified (principal); J45.909 Unspecified asthma, uncomplicated; I10 Essential (primary) hypertension; Z88.6 Allergy status to analgesic agent; Z79.899 Other long term (current) drug therapy; Z98.890 Other specified postprocedural states
CPT/HCPCS: 36415; 74176; 80053; 81001; 81025; 83690; 85025; 96361; 96374; 96375; 99285; J2270; J2405; J7030

== ENCOUNTER 2017-06-09 16:42 | Inpatient (IN) | payer OTHER ==
[~2017-06-09] VITALS: Ht 165.1 cm; Wt 88.5 kg
[2017-06-09 16:45] VITALS: BP 100/65
--- NOTE | 2017-06-09 16:52 | NUR ---
PATIENT PRESENTS TO ED WITH C/O back pain, headache, gen weakness, since yesterday . DENIES N/V/D; SKIN IS PINK/WARM/DRY; AAOX4 WITH EVEN AND STEADY GAIT; LUNGS CLEAR BL; HR EVEN AND REGULAR; PT DENIES ANY FEVER, CP, SOB, OR COUGH AT THIS TIME; PATIENT STATES PAIN OF 9/10 AT THIS TIME; VSS; PATIENT POSITIONED FOR COMFORT; HOB ELEVATED; BEDRAILS UP X2; BED DOWN. ER MD MADE AWARE OF PT STATUS.
--- NOTE | 2017-06-09 16:52 | NUR ---
PT AMBULATES TO BED4
--- NOTE | 2017-06-09 16:54 | NUR ---
DR PEREIRA EVALUATING AAO PT AT BEDSIDE
[2017-06-09] MEDS ORDERED: MORPHINE SULFATE 4 MG/ML SYR IVP ONE (17:00)
[2017-06-09] MEDS ORDERED: PROCHLORPERAZINE 10 MG/2 ML VIAL IVP ONE (17:00)
[2017-06-09] MEDS ORDERED: NACL 0.9% 1,000 ML IV ONE ×2 (17:00→22:30)
[2017-06-09 17:54] LABS: PROTHROMBIN TIME 12.7 secs (10.8-13.4)
[2017-06-09 18:00] LABS: ALBUMIN 2.4 g/dL (3.4-5.0); ANION GAP 11.4 (8-16); ASPARTATE AMINOTRANSFERASE 29 U/L (15-37); CARBON DIOXIDE 24.4 mmol/L (21-32); CHLORIDE 110 mmol/L (98-107); CREATININE 1.3 mg/dL (0.6-1.3); GFR ARICAN-AMERICAN 54 mL/min (>90); GLUCOSE 210 mg/dL (74-106); LIPASE 150 U/L (73-393); MAGNESIUM 1.5 mg/dL (1.8-2.4); PHOSPHORUS 3.4 mg/dL (2.5-4.9); POTASSIUM 3.8 mmol/L (3.5-5.1); SODIUM SERUM 142 mmol/L (136-145); TOTAL BILIRUBIN 0.7 mg/dL (0.0-1.0); UREA NITROGEN, BLOOD 13 mg/dL (7-18)
--- NOTE | 2017-06-09 18:12 | NUR ---
PT RESTING COMFORTABLY, NO C/O PAIN AT THIS TIME, WILL CONTINUE TO MONITOR
[2017-06-09 18:29] LABS: BASOPHILS % (AUTO) 0.5 % (0.0-2.0); EOSINOPHILS # (AUTO) 0.1 K/uL (0-0.4); EOSINOPHILS % (AUTO) 3.4 % (0.0-4.0); HEMATOCRIT 25.3 % (36-48); HEMOGLOBIN 8.6 g/dL (12.0-16.0); LYMPHOCYTES # (AUTO) 0.6 K/uL (2.5-16.5); LYMPHOCYTES % (AUTO) 30.2 % (20.5-51.1); MEAN CORPUSCULAR HEMOGLOBIN 36 pg (27-31); MEAN CORPUSCULAR HGB CONC 34 g/dL (33-37); MEAN CORPUSCULAR VOLUME 104.9 fL (80-94); MONOCYTES # (AUTO) 0.2 K/uL (0.8-1.0); MONOCYTES % (AUTO) 9.5 % (1.7-9.3); NEUTROPHILS # (AUTO) 1.1 K/uL (1.8-7.7); NEUTROPHILS % (AUTO) 56.4 % (42.2-75.2); PLATELET COUNT (AUTO) 64 K/uL (140-450); RED BLOOD CELL COUNT(AUTO) 2.41 MIL/uL (4.20-5.40); RED CELL DISTRIBUTION WIDTH 13.4 % (11.6-13.7)
[2017-06-09 18:40] LABS: VALPROIC ACID < 3 ug/ml (50-100)
--- NOTE | 2017-06-09 19:19 | NUR ---
REPORT GIVEN TO RUSS GRANT FOR CONTINUATION OF CARE
--- NOTE | 2017-06-09 19:43 | NUR ---
Patient will be admitted to care of GROBLER. Admited to MS. Will go to room 105A. Belongings list completed. BEDSIDE Report to EMELY SOLANO.
--- NOTE | 2017-06-09 19:45 | NUR ---
PATIENT ADMITTED FOR OBSERVATION. NO SIGNS AND SYMPTOMS OF DISTRESS NOTED. PATIENT ABLE TO AMBULATE WITH CANE FROM GURNEY TO BED. PATIENT AOX4. IV SITE NOTED ON LEFT AC, SALINE LOCKED. PLAN OF CARE DISCUSSED WITH PATIENT. PATIENT VERBALIZED UNDERSTANDING. BED IN LOWEST POSITION, SIDE RAILS UP AND FALL RISK PROTOCOL IN PLACE. WILL CONTINUE TO MONITOR
[2017-06-09 21:05] VITALS: BP 98/50
--- NOTE | 2017-06-09 22:08 | NUR ---
SPOKE TO DR. RICARDO ON THE PHONE. ORDERS RECEIVED.
--- NOTE | 2017-06-09 22:09 | NUR ---
ASKED DR. RICARDO IF HE WANTED TO RESUME HER HOME MEDS. HE SAID TO HOLD HER HOME MEDS FOR NOW.
[2017-06-09] MEDS ORDERED: ONDANSETRON 4 MG/2 ML VIAL IVP PRN (22:10)
[2017-06-09] MEDS ORDERED: MAG SULF 2000 MG/WATER PREMIX 50 ML IV SCH (22:30)
--- NOTE | 2017-06-09 22:41 | NUR ---
MAG RIDER 2G/50ML ADMINISTERED VIA PIGGYBACK TO NORMAL SALINE. TO RUN AT 25ML/HR FOR 2 HOURS.
--- NOTE | 2017-06-09 22:41 | NUR ---
IVF STARTED NORMAL SALINE 1000ML BAG TO RUN AT 50ML/HR.
--- NOTE | 2017-06-10 00:41 | NUR ---
MAG RIDER FINISHED. IVF NS RESUMED, RUNNING AT 50ML/HR
--- NOTE | 2017-06-10 02:54 | NUR ---
CHECKED ON PATIENT. PATIENT IS ASLEEP. NO SIGNS AND SYMPTOMS OF DISTRESS NOTED. BREATHING EVEN AND UNLABORED. WILL CONTINUE TO MONITOR.
--- NOTE | 2017-06-10 03:29 | NUR ---
ASSISTED PATIENT TO THE RESTROOM. PATIENT AMBULATED WITH CANE. PATIENT VOIDED. ASSISTED HER BACK TO BED. PATIENT TOLERATED WELL
[2017-06-10 04:00] VITALS: BP 95/47
[2017-06-10 06:37] LABS: BASOPHILS % (AUTO) 0.4 % (0.0-2.0); EOSINOPHILS # (AUTO) 0.1 K/uL (0-0.4); EOSINOPHILS % (AUTO) 5.7 % (0.0-4.0); HEMATOCRIT 24.4 % (36-48); HEMOGLOBIN 8.2 g/dL (12.0-16.0); LYMPHOCYTES # (AUTO) 0.8 K/uL (2.5-16.5); MEAN CORPUSCULAR HEMOGLOBIN 36 pg (27-31); MEAN CORPUSCULAR HGB CONC 34 g/dL (33-37); MEAN CORPUSCULAR VOLUME 105.1 fL (80-94); MONOCYTES # (AUTO) 0.2 K/uL (0.8-1.0); MONOCYTES % (AUTO) 10.2 % (1.7-9.3); NEUTROPHILS # (AUTO) 0.9 K/uL (1.8-7.7); NEUTROPHILS % (AUTO) 42.7 % (42.2-75.2); PLATELET COUNT (AUTO) 64 K/uL (140-450); RED BLOOD CELL COUNT(AUTO) 2.32 MIL/uL (4.20-5.40); RED CELL DISTRIBUTION WIDTH 13.5 % (11.6-13.7)
--- NOTE | 2017-06-10 07:11 | NUR ---
RECEIVED BEDSIDE REPORT FROM NIGHTSHIFT NURSE AT BEDSIDE. PATIENT IS LYING IN SEMI-FOWLERS POSITION. PATIENT IS SLEEPING AT THIS TIME BUT AROUSABLE TO NAME. PATIENT'S RESPIRATIONS ARE WITHIN NORMAL LIMITS. NO SIGNS OF PAIN AT THIS TIME. PATIENT HAS AN IV NOTED ON HER LEFT AC 20G RUNNING 50 ML/HR. RESPIRATIONS WITHIN NORMAL LIMITS. NO COMPLAINTS OF PAIN AT THIS TIME. WILL CONTINUE TO MONITOR PATIENT.
--- NOTE | 2017-06-10 07:11 | NUR ---
PATIENT REPORT GIVEN TO MORNING NURSE AT BEDSIDE. PATIENT IS IN STABLE CONDITION.
[2017-06-10 07:42] LABS: ANION GAP 10.4 (8-16); CARBON DIOXIDE 26.2 mmol/L (21-32); POTASSIUM 4.6 mmol/L (3.5-5.1)
[2017-06-10 07:43] LABS: CREATININE 1.1 mg/dL (0.6-1.3)
[2017-06-10 07:57] LABS: TOTAL BILIRUBIN 0.7 mg/dL (0.0-1.0)
[2017-06-10 07:58] LABS: ALBUMIN 2.2 g/dL (3.4-5.0)
[2017-06-10 08:00] VITALS: BP 95/44
--- NOTE | 2017-06-10 08:05 | NUR ---
PATIENT AWAKE AT THIS TIME IN SEMI-FOWLERS POSITION. PATIENT IS ALERT AND ORIENTED X3. NO DISTRESS NOTED. WILL CONTINUE TO MONITOR PATIENT.
--- NOTE | 2017-06-10 11:13 | NUR ---
PATIENT LAYING IN SEMI-FOWLERS POSITION. PATIENT TALKING ON PHONE WITH FAMILY MEMBER. NO SIGNS OF RESPIRATORY DISTRESS OR RESPIRATORY DEPRESSION. NO COMPLAINTS OF PAIN. WILL CONTINUE TO MONITOR PATIENT.
--- NOTE | 2017-06-10 11:21 | NUR ---
PATIENT HAS BEEN SCREENED AND CATEGORIZED MODERATE NUTRITION RISK. PATIENT WILL BE SEEN WITHIN 3-5 DAYS OF ADMISSION. 06/12/17 06/14/[address]
--- NOTE | 2017-06-10 13:50 | NUR ---
CM NOTE INITIAL REVIEW FAXED TO [facility] [phone] YUE # [phone]
--- NOTE | 2017-06-10 15:07 | NUR ---
PATIENT RESTING IN BED AT THIS TIME WATCHING TELEVISION. PATIENT IS IN SEMI-FOWLERS POSITION. WILL CONTINUE TO MONITOR PATIENT.
[2017-06-10 16:00] VITALS: BP 111/54
--- NOTE | 2017-06-10 19:20 | NUR ---
GAVE REPORT TO NIGHTSHIFT NURSE AT BEDSIDE. PATIENT IN STABLE CONDITION.
--- NOTE | 2017-06-10 19:28 | NUR ---
RECEIVED PT REPORT FROM LOUIS AT BEDSIDE FOR CONTINUITY OF CARE. PT AAOX4. IV NOTED LAC 20G NS 50ML/HR PATENT AND INFUSING WELL. PT HAS NO S/S OF DISTRESS NO SOB ON RA. BED LOWERED CALL LIGHT WITHIN REACH. WILL CONTINUE TO MONITOR.
[2017-06-10] MEDS: LACTULOSE 20 GM/30 ML UDC PO SCH (20:15)
--- NOTE | 2017-06-10 22:47 | NUR ---
PT IS SLEEPING. NO SOB. NO S/S OF DISTRESS. WILL CONTINUE TO MONITOR.
[2017-06-10 23:13] VITALS: BP 101/49
--- NOTE | 2017-06-11 | NUR ---
PT URINATED ON THE FLOOR. CHANGED PT AND PT IS NOW RESTING ON BED. WILL CONTINUE TO MONITOR. Addendum: 06/11/17 at 0129 by Peggy Benson RN PT DID NOT URINATE ON THE FLOOR WRONG PT.
--- NOTE | 2017-06-11 01:26 | NUR ---
PT IS SLEEPING. NO SOB. NO S/S OF DISTRESS. WILL CONTINUE TO MONITOR.
--- NOTE | 2017-06-11 04:44 | NUR ---
PT SLEEPING WILL CONTINUE TO MONITOR.
--- NOTE | 2017-06-11 07:13 | NUR ---
RECEIVED REPORT AT BEDSIDE FROM NIGHTSHIFT NURSE. UPDATED ON PATIENT'S CONDITION. PATIENT HAS AN IV ON LEFT AC 20G. PATIENT DOES NOT PRESENT WITH ANY PAIN OR RESPIRATORY DISTRESS OR RESPIRATORY DEPRESSION. PATIENT IS ALERT AND ORIENTED X4. UPDATED BOARD IN PATIENT'S ROOM. LOWERED BED TO LOWEST SETTING. PATIENT HAS CALL LIGHT BY HER LEFT HAND. WILL CONTINUE TO MONITOR PATIENT.
--- NOTE | 2017-06-11 07:13 | NUR ---
GAVE REPORT TO DAYSHIFT NURSE AT BEDSIDE FOR CONTINUITY OF CARE.
[2017-06-11 08:00] VITALS: BP 116/61
--- NOTE | 2017-06-11 08:30 | NUR ---
PATIENT ASLEEP AT THIS TIME. NO COMPLAINTS OF PAIN. WILL CONTINUE TO MONITOR
[2017-06-11] MEDS ORDERED: BEN10 PO (08:39)
[2017-06-11] MEDS ORDERED: ALBU1SPR IH (08:39)
[2017-06-11] MEDS ORDERED: RIFA550T PO (08:39)
[2017-06-11] MEDS ORDERED: ONDA4ODT2 PO (08:39)
[2017-06-11] MEDS ORDERED: DIVA250T45 PO (08:39)
[2017-06-11] MEDS ORDERED: ATI.5 PO (08:39)
[2017-06-11] MEDS ORDERED: ISOS10TA9 PO (08:39)
[2017-06-11] MEDS ORDERED: GABA300C PO (08:39)
[2017-06-11] MEDS ORDERED: ERGO2000 PO (08:39)
[2017-06-11] MEDS ORDERED: FLUO40CA6 PO (08:39)
[2017-06-11] MEDS ORDERED: ZOLP5TAB1 PO (08:39)
[2017-06-11] MEDS ORDERED: FAMO-90 PO (08:39)
[2017-06-11] MEDS ORDERED: ESCI20TA PO (08:39)
[2017-06-11] MEDS ORDERED: VITD1000 PO (08:39)
[2017-06-11] MEDS ORDERED: SPIR50TA PO (08:39)
[2017-06-11] MEDS ORDERED: VAS10 PO (08:39)
[2017-06-11] MEDS: LACTULOSE 20 GM/30 ML UDC PO SCH (09:00)
[2017-06-11] MEDS ORDERED: LACT10SO1 PO (09:36)
--- NOTE | 2017-06-11 10:00 | NUR ---
PATIENT AWAKE AT THIS TIME. NO DISTRESS NOTED. WILL CONTINUE TO MONITOR PATIENT.
--- NOTE | 2017-06-11 11:25 | NUR ---
PATIENT UNDERSTOOD AND IS AWARE OF ALL DISCHARGE INSTRUCTIONS AND PRESCRIPTIONS. DISCONTINUED PATIENT'S IV LINE WITH CATHETER STILL INTACT. CUT OFF PATIENT'S IDENTIFICATION BAND. PATIENT GATHERED ALL BELONGINGS. WHEELED PATIENT TO LOBBY TO HER RIDE. PATIENT LEFT THE UNIT IN STABLE CONDITION.
--- NOTE | 2017-06-11 12:08 | NUR ---
CLINICAL INFORMATION FAXED TO YUE MANUEL AT [facility] [phone] AND PHONE [phone]
== END 2017-06-11 11:25 | disposition home or self-care (01) | DRG 422 ==
LOC: MED 16:42 → MTU 19:30 → OBSVTOIN 06-10 09:11
PROVIDERS: ADMIT Internal Medicine; ATTEND Internal Medicine
DX: E86.9 Volume depletion, unspecified (principal); D61.818 Other pancytopenia; E44.0 Moderate protein-calorie malnutrition; K70.30 Alcoholic cirrhosis of liver without ascites; E83.42 Hypomagnesemia; I10 Essential (primary) hypertension; J45.909 Unspecified asthma, uncomplicated; B19.20 Unspecified viral hepatitis C without hepatic coma; F32.9 Major depressive disorder, single episode, unspecified; F41.9 Anxiety disorder, unspecified; Z87.891 Personal history of nicotine dependence; Z91.018 Allergy to other foods; Z88.6 Allergy status to analgesic agent; Z68.32 Body mass index [BMI] 32.0-32.9, adult; Z98.891 History of uterine scar from previous surgery
CPT/HCPCS: 96361; 96374; 96375; 99285; G0378; 36415; 80053; 82140; 83690; 83735; 84100; 84484; 85025; 85610; 85730; 87081; 93005; 97110; 97116; 97140; 97530; 97535; J0780; J2270; J3475; J7030

== ENCOUNTER 2017-07-17 11:29 | Emergency (ER) | payer OTHER ==
[~2017-07-17] VITALS: Ht 165.1 cm; Wt 94.3 kg
[~2017-07-17 11:29] MED LIST changes: -ACET-2869 PO; -ACET-7169 PO; +ALBU1SPR IH; -ATI.5 PO; +BEN10 PO; -BENZONATATE 100 MG CAPSULE; +DIVA250T45 PO; -DIVA500T1 PO; +ESCI20TA PO; +FAMO-90 PO; +GABA300C PO; -ISOSORBIDE DINITRATE 5 MG; -OMEP20TC12 PO; +ONDA4ODT2 PO; +RIFA550T PO; +SPIR50TA PO; -TRAMADOL HCL 50 MG TABLET; -TRAZ-286 PO; +VAS10 PO; -ZOLP5TAB1 PO
[2017-07-17 11:33] VITALS: BP 112/75
--- NOTE | 2017-07-17 11:40 | NUR ---
WHEEL CHAIR ASSISTED TO BED 1, REPORT GIVEN TO RUSS HEATH
--- NOTE | 2017-07-17 11:45 | NUR ---
57F BIB FAMILY C/O 9/10 INTERMITTENT NON RADIATING NON PROVOKED MIDSTERNAL CHEST PAIN X "IN THE MORNING AROUND 8AM". PT REPORTS DIZZINESS AND SOB BUT DENIES N/V/D. RR ARE EVEN AND UNLABORED. COLOR IS WARM/DRY/COLOR APPRIORIATE FOR ETHNICITY. PT ALSO REPORTS OF 9/10 RT KNEE PAIN. MILAD INJURY. LIMITED ROM TO RT KNEE AND MILD SWELLING. PT IS AOX4. GCS=15. CLEAR SPEECH. PT TO CARDIAC, BLOOD PRESSURE, AND PULSE OX MONITORING. VSS. AWAITING FOR ER EVAL. WILL CONTINUE TO MONITOR.
[2017-07-17] MEDS ORDERED: ASPIRIN 325 MG TAB PO ONE (12:05)
[2017-07-17] MEDS ORDERED: NITROGLYCERIN 0.4 MG TAB SL ONE (12:05)
--- NOTE | 2017-07-17 12:40 | NUR ---
ER MD COBB BY BEDSIDE EXAMINING PATIENT
--- NOTE | 2017-07-17 12:40 | NUR ---
PULSE OX=98% ON RA; RR ARE EVEN AND UNLABORED; CLEAR SPEECH. NO RESP DISTRESS NOTED. INFORMED ER MD COBB. OXYGEN NC NOT NEEDED AT THIS. WILL CONTINUE TO MONITOR
[2017-07-17 12:43] LABS: BASOPHILS % (AUTO) 0.7 % (0.0-2.0); EOSINOPHILS % (AUTO) 1.8 % (0.0-4.0); HEMATOCRIT 30.1 % (36-48); HEMOGLOBIN 10.3 g/dL (12.0-16.0); LYMPHOCYTES # (AUTO) 0.9 K/uL (2.5-16.5); LYMPHOCYTES % (AUTO) 34.6 % (20.5-51.1); MEAN CORPUSCULAR HEMOGLOBIN 35 pg (27-31); MEAN CORPUSCULAR HGB CONC 34 g/dL (33-37); MEAN CORPUSCULAR VOLUME 103.6 fL (80-94); MONOCYTES # (AUTO) 0.3 K/uL (0.8-1.0); MONOCYTES % (AUTO) 9.6 % (1.7-9.3); NEUTROPHILS # (AUTO) 1.4 K/uL (1.8-7.7); NEUTROPHILS % (AUTO) 53.3 % (42.2-75.2); PLATELET COUNT (AUTO) 96 K/uL (140-450); RED BLOOD CELL COUNT(AUTO) 2.91 MIL/uL (4.20-5.40); RED CELL DISTRIBUTION WIDTH 13.5 % (11.6-13.7); WHITE BLOOD COUNT (AUTO) 2.7 K/uL (4.8-10.8)
[2017-07-17 12:48] LABS: ANION GAP 12.3 (8-16); CARBON DIOXIDE 25.3 mmol/L (21-32); CREATININE 1.1 mg/dL (0.6-1.3); POTASSIUM 4.6 mmol/L (3.5-5.1)
[2017-07-17 12:53] LABS: PROTHROMBIN TIME 12.4 secs (10.8-13.4)
[2017-07-17 12:56] LABS: ALBUMIN 2.8 g/dL (3.4-5.0); TOTAL BILIRUBIN 1.3 mg/dL (0.0-1.0)
--- NOTE | 2017-07-17 14:27 | NUR ---
Patient discharged with v/s stable. Written and verbal after care instructions given and explained. Patient alert, oriented and verbalized understanding of instructions. Ambulatory with steady gait. All questions addressed prior to discharge. ID band removed. Patient advised to follow up with PMD. Rx of Reglan and Acetaminophen given. Patient questioned discharge medication. ER MD Burgos by bedside explaining discharge medication and reason for prescriping and that is only what he is prescriping to patient. Patient educated on indication of medication including possible reaction and side effects. Opportunity to ask questions provided and answered. Patient refused to take discharge paperwork, left by bedside.
[2017-07-17 14:31] VITALS: BP 117/60
== END 2017-07-17 14:27 | disposition home or self-care (01) ==
LOC: MED 11:29
DX: R07.89 Other chest pain (principal); G89.29 Other chronic pain; J45.909 Unspecified asthma, uncomplicated; I10 Essential (primary) hypertension; F41.9 Anxiety disorder, unspecified; F32.9 Major depressive disorder, single episode, unspecified; Z90.49 Acquired absence of other specified parts of digestive tract; Z79.899 Other long term (current) drug therapy; Z88.8 Allergy status to other drugs, medicaments and biological substances; Z91.018 Allergy to other foods
CPT/HCPCS: 36415; 71045; 80053; 83880; 84484; 85025; 85610; 85730; 93005; 99285; Q0092

== ENCOUNTER 2017-07-26 14:47 | Emergency (ER) | payer OTHER ==
[~2017-07-26] VITALS: Ht 165.1 cm; Wt 94.3 kg
[~2017-07-26 14:47] MED LIST changes: -DIVA250T45 PO; -FOLI1TAB90 PO; -TRAM50TA1 PO; -VITD1000 PO
[2017-07-26 14:53] VITALS: BP 148/77
[2017-07-26] MEDS ORDERED: KETOROLAC 15 MG/ML VIAL IM ONE (17:40)
[2017-07-26] MEDS ORDERED: LORazepam 0.5 MG TAB PO ONE (17:40)
[2017-07-26 17:56] LABS: APPEARANCE,URINE CLEAR (CLEAR); BILIRUBIN,URINE NEGATIVE (NEGATIVE); BLOOD, URINE TRACE-L (NEGATIVE); COLOR,URINE YELLOW (YELLOW); LEUKOCYTE ESTERASE ,URINE NEGATIVE (NEGATIVE); NITRITE, URINE NEGATIVE (NEGATIVE); UGLUCOSE NEGATIVE (NEGATIVE)
[2017-07-26 18:17] LABS: BASOPHILS % (AUTO) 0.5 % (0.0-2.0); EOSINOPHILS # (AUTO) 0.1 K/uL (0-0.4); EOSINOPHILS % (AUTO) 2.8 % (0.0-4.0); HEMATOCRIT 25.5 % (36-48); LYMPHOCYTES # (AUTO) 1.3 K/uL (2.5-16.5); LYMPHOCYTES % (AUTO) 36.4 % (20.5-51.1); MEAN CORPUSCULAR HEMOGLOBIN 36 pg (27-31); MEAN CORPUSCULAR HGB CONC 35 g/dL (33-37); MEAN CORPUSCULAR VOLUME 100.7 fL (80-94); MONOCYTES # (AUTO) 0.5 K/uL (0.8-1.0); MONOCYTES % (AUTO) 14.9 % (1.7-9.3); NEUTROPHILS # (AUTO) 1.6 K/uL (1.8-7.7); NEUTROPHILS % (AUTO) 45.4 % (42.2-75.2); PLATELET COUNT (AUTO) 87 K/uL (140-450); RED BLOOD CELL COUNT(AUTO) 2.53 MIL/uL (4.20-5.40); RED CELL DISTRIBUTION WIDTH 13.2 % (11.6-13.7); WHITE BLOOD COUNT (AUTO) 3.5 K/uL (4.8-10.8)
[2017-07-26 18:21] LABS: BARBITURATE, URINE NEG. ng/ml (NEG <=200); BENZODIAZEPINE, URINE NEG. ng/mL (NEG <=200); CANNABINOID, URINE NEG. ng/mL (NEG <=50); COCAINE, URINE NEG. ng/mL (NEG <=300); OPIATE, URINE NEG. ng/mL (NEG <=2000); PHENCYCLIDINE SCREEN,URINE NEG. ng/mL (NEG <=25)
[2017-07-26 18:26] LABS: ANION GAP 10.1 (8-16); CARBON DIOXIDE 25.2 mmol/L (21-32); CREATININE 1.1 mg/dL (0.6-1.3); POTASSIUM 4.3 mmol/L (3.5-5.1)
[2017-07-26 18:32] LABS: ALBUMIN 2.6 g/dL (3.4-5.0); TOTAL BILIRUBIN 0.8 mg/dL (0.0-1.0)
[2017-07-26 19:01] VITALS: BP 130/64
== END 2017-07-26 19:01 | disposition home or self-care (01) ==
LOC: MED 14:47
DX: G89.29 Other chronic pain (principal); R10.9 Unspecified abdominal pain; R06.02 Shortness of breath; J45.909 Unspecified asthma, uncomplicated; I10 Essential (primary) hypertension; Z79.899 Other long term (current) drug therapy; Z91.018 Allergy to other foods; Z88.8 Allergy status to other drugs, medicaments and biological substances
CPT/HCPCS: 36415; 80053; 80305; 81003; 83690; 85025; 93005; 96372; 99285; J1885

== ENCOUNTER 2017-09-20 15:58 | Emergency (ER) | payer OTHER ==
[~2017-09-20] VITALS: Ht 165.1 cm; Wt 98.4 kg
[2017-09-20 16:13] VITALS: BP 118/71
--- NOTE | 2017-09-20 16:15 | NUR ---
57 Y/O F PRESENTS TO THE ED W/C/O DIZZINESS AND NAUSEA X2DAYS. NO NYSTAGMUS NOTED. PT STATED, "MY HOME HEALTH NURSE CAME AND SAW ME AND SAID I WAS DEHYDRATED AND NEED TO COME TO ER." PT ALSO C/O LOWER BACK PAIN AND PAIN ALL OVER HEAD 9/10 X2DAYS. PT DENIES V/D; SKIN IS INTACT, PINK/WARM/DRY; AAOX4, PERRL, WITH EVEN AND STEADY GAIT; LUNGS CLEAR BL, BREATHING UNLABORED; HR EVEN AND REGULAR, BL PERIPHERAL PULSES PRESENT; BS ACTIVE X4, NO TENDERNESS TO PALPATION, NO HEPATOSPLENOMEGALLY PALPATED, RESONANT TO PERCUSSION; PT DENIES ANY FEVER, CP, SOB, OR COUGH AT THIS TIME; PT STATES 9/10 PAIN AT THIS TIME; VSS; PATIENT POSITIONED FOR COMFORT; HOB ELEVATED; BEDRAILS UP X2; BED DOWN.
--- NOTE | 2017-09-20 16:16 | NUR ---
PT AMBULATES TO BED 6
--- NOTE | 2017-09-20 16:36 | NUR ---
DR HESTER EVALUATING PT AT BEDSIDE
--- NOTE | 2017-09-20 16:40 | NUR ---
REPORT TRANSFERED TO CHER SOLANO AT THIS TIME
[2017-09-20] MEDS ORDERED: PROMETHAZINE 25 MG/ML VIAL IM ONE (16:45)
[2017-09-20] MEDS ORDERED: METOCLOPRAMIDE 10 MG TAB PO ONE (16:45)
[2017-09-20] MEDS ORDERED: MECLIZINE 25 MG TAB PO ONE (16:45)
[2017-09-20] MEDS ORDERED: FAMOTIDINE 20 MG TAB PO ONE (16:45)
[2017-09-20 18:02] VITALS: BP 116/78
--- NOTE | 2017-09-20 18:03 | NUR ---
Patient discharged with v/s stable. Written and verbal after care instructions given and explained. Patient alert, oriented and verbalized understanding of instructions. Ambulatory with . All questions addressed prior to discharge. ID band removed. Patient advised to follow up with PMD. Rx of ANTIVERT given. Patient educated on indication of medication including possible reaction and side effects. Opportunity to ask questions provided and answered.
== END 2017-09-20 18:03 | disposition home or self-care (01) ==
LOC: MED 15:58
DX: R11.2 Nausea with vomiting, unspecified (principal); R51 Headache; J45.909 Unspecified asthma, uncomplicated; I10 Essential (primary) hypertension; Z88.6 Allergy status to analgesic agent; Z88.8 Allergy status to other drugs, medicaments and biological substances; Z79.899 Other long term (current) drug therapy; Z91.018 Allergy to other foods
CPT/HCPCS: 96372; 99284; J2550; J8597

== ENCOUNTER 2017-09-23 12:08 | Emergency (ER) | payer OTHER ==
[~2017-09-23] VITALS: Ht 165.1 cm; Wt 100.7 kg
[2017-09-23 12:12] VITALS: BP 102/59
--- NOTE | 2017-09-23 12:15 | NUR ---
PT AMBULATES TO BED 2
--- NOTE | 2017-09-23 12:38 | NUR ---
57 YO F BIB SELF W/ C/O LOWER ABD PAIN 11/20 THAT IS ACHING AND NON-RADIATING X THIS MORNING. PT DENIES N/V/D/C. REPORTS THAT SHE HAS BEEN EATING OKAY AND NO ISSUES W/ BM/URINARY. PT WAS JUST HERE ON SEPTEMBER 20. AAOX4. GCS 15, CMS INTACT. RR EVEN AND UNLABORED. LUNGS CLEAR. ABD SOFT, NON-TENDER. BOWEL SOUNDS ACTIVE X 4 QUADRANTS. ER MD NOTIFIED. PT NEEDS MET. SAFETY PRECAUTIONS IN PLACE. WILL CONTINUE TO MONITOR.
[2017-09-23] MEDS ORDERED: fentaNYL 0.05 MG/ML VIAL IVP ONE (12:40)
[2017-09-23] MEDS ORDERED: NACL 0.9% 1,000 ML IV ONE (12:40)
[2017-09-23 14:53] VITALS: BP 135/88
--- NOTE | 2017-09-23 14:54 | NUR ---
Patient discharged with v/s stable. Written and verbal after care instructions given and explained. Patient alert, oriented and verbalized understanding of instructions. Ambulatory with steady gait. All questions addressed prior to discharge. ID band removed. Patient advised to follow up with PMD. Rx of LACTULOSE AND MINERAL OIL given. Patient educated on indication of medication including possible reaction and side effects. Opportunity to ask questions provided and answered.
--- NOTE | 2017-10-03 09:34 | NUR ---
LATE ENTRY NORMAL SALINE START TIME 1320 END TIME 1454
== END 2017-09-23 14:54 | disposition home or self-care (01) ==
LOC: MED 12:08
DX: R10.32 Left lower quadrant pain (principal); R42 Dizziness and giddiness; J45.909 Unspecified asthma, uncomplicated; I10 Essential (primary) hypertension; Z88.6 Allergy status to analgesic agent; Z91.018 Allergy to other foods; Z79.899 Other long term (current) drug therapy
CPT/HCPCS: 74176; 81002; 81025; 96361; 96374; 99284; J3010; J7030

== ENCOUNTER 2017-09-23 18:32 | Emergency (ER) | payer OTHER ==
[~2017-09-23] VITALS: Ht 165.1 cm; Wt 100.7 kg
[2017-09-23 18:47] VITALS: BP 140/83
--- NOTE | 2017-09-23 18:49 | NUR ---
PT TRIAGED AND SENT TO ED LOBBY. EDMD AWARE OF PT STATUS.
--- NOTE | 2017-09-23 21:15 | NUR ---
57/F CAME IN ED, C/O 10/10 CRAMPING LOWER ABD PAIN, RADIATING THROUGHOUT ABD, X1 DAY. PT REPORTS SHE WAS SITTING WHEN THE PAIN STARTED. LBM TODAY. ABD SOFT ROUND TENDER TO TOUCH. PT REPORTS THROBBING HUANG. DENIES FEVER, N/V/D, DYSURIA. HX HTN, DEPRESSION, ANXIETY, GERD. RESEARCH PROFESSIONAL IN PLACE. ER MD MADE AWARE.
[2017-09-23] MEDS ORDERED: POLYETHYLENE GLYCOL 17 GM/PKT PO ONE (21:20)
[2017-09-23] MEDS ORDERED: SODIUM PHOSPHATE 118 ML ENEM RC ONE (21:20)
[2017-09-23] MEDS ORDERED: DICYCLOMINE 20 MG/2 ML VIAL IM ONE (21:20)
--- NOTE | 2017-09-23 22:00 | NUR ---
PT ABLE TO HAVE BM USING BEDSIDE COMMODE.
--- NOTE | 2017-09-23 22:39 | NUR ---
PT HAD MODERATE AMOUNT BROWN LOOSE BM. VSS, PT REPORTS 9/10 ABD PAIN AT THIS TIME. ALL NEEDS MET.
[2017-09-23 23:49] VITALS: BP 118/62
--- NOTE | 2017-09-23 23:49 | NUR ---
Patient discharged with v/s stable. Written and verbal after care instructions given and explained. Patient verbalized understanding. Ambulatory with steady gait. All questions addressed prior to discharge. Advised to follow up with PMD.
== END 2017-09-23 23:49 | disposition home or self-care (01) ==
LOC: MED 18:32
DX: R10.30 Lower abdominal pain, unspecified (principal); J45.909 Unspecified asthma, uncomplicated; I10 Essential (primary) hypertension; Z88.6 Allergy status to analgesic agent; Z88.8 Allergy status to other drugs, medicaments and biological substances; Z79.899 Other long term (current) drug therapy; Z90.49 Acquired absence of other specified parts of digestive tract; Z91.018 Allergy to other foods
CPT/HCPCS: 81025; 96372; 99283; J0500; 99284

== ENCOUNTER 2018-05-21 16:47 | Emergency (ER) | payer MEDICAID, OTHER ==
[~2018-05-21] VITALS: Ht 167.6 cm; Wt 108.9 kg
[~2018-05-21 16:47] MED LIST changes: +ENAL-197 PO; -VAS10 PO
[2018-05-21 16:55] VITALS: BP 124/67
--- NOTE | 2018-05-21 17:00 | NUR ---
PT SENT TO LOBBY TO WAIT FOR AVAILABLE BED.
--- NOTE | 2018-05-21 18:00 | NUR ---
PT AMBULATED TO BED 3.
--- NOTE | 2018-05-21 18:15 | NUR ---
PT BIB SELF TO THE ED WITH THE CHIEF C/O BURNINGA AND FREQUENCY OF URINATION X3 DAYS. PT ALSO REPORTS COUGH X2 WEEKS. LUNGS CLEAR. NO PHLEGM OR BLOOD IN COUGH. STATES PAIN 8/10 AT THIS TIME. DENIES FEVER. DENIES N/V/D. DENIES ANY OTHER PROBLEM. VSS. ER AWARE.
[2018-05-21 18:26] LABS: APPEARANCE,URINE CLEAR (CLEAR); BILIRUBIN,URINE NEGATIVE (NEGATIVE); BLOOD, URINE 1+ (NEGATIVE); COLOR,URINE YELLOW (YELLOW); LEUKOCYTE ESTERASE ,URINE NEGATIVE (NEGATIVE); NITRITE, URINE NEGATIVE (NEGATIVE); UGLUCOSE NEGATIVE (NEGATIVE)
[2018-05-21 18:42] LABS: WBC,URINE 0-5 /HPF (0-5)
--- NOTE | 2018-05-21 19:15 | NUR ---
REPORT GIVEN TO HANDLE ASSEMBLER RN FOR CONTNUITY OF CARE.
[2018-05-21 20:15] VITALS: BP 130/51
--- NOTE | 2018-05-21 20:15 | NUR ---
Patient discharged with v/s stable. Written and verbal after care instructions given and explained. Patient alert, oriented and verbalized understanding of instructions. Wheel Chair Assisted with steady gait. All questions addressed prior to discharge. ID band removed. Patient advised to follow up with PMD. Rx of MACROBID AND PYRIDIUM given. Patient educated on indication of medication including possible reaction and side effects. Opportunity to ask questions provided and answered.
== END 2018-05-21 20:15 | disposition home or self-care (01) ==
LOC: MED 16:47
DX: N39.0 Urinary tract infection, site not specified (principal); J45.909 Unspecified asthma, uncomplicated; K21.9 Gastro-esophageal reflux disease without esophagitis; I10 Essential (primary) hypertension; K74.60 Unspecified cirrhosis of liver; F41.9 Anxiety disorder, unspecified; F32.9 Major depressive disorder, single episode, unspecified; Z90.49 Acquired absence of other specified parts of digestive tract; Z98.890 Other specified postprocedural states; Z79.899 Other long term (current) drug therapy; Z88.6 Allergy status to analgesic agent; Z91.018 Allergy to other foods
CPT/HCPCS: 81001; 87086; 99283

== ENCOUNTER 2018-06-09 20:49 | Emergency (ER) | payer MEDICAID ==
[~2018-06-09] VITALS: Ht 162.6 cm; Wt 120.2 kg
--- NOTE | 2018-06-09 20:55 | NUR ---
PT TAKEN TO BED 6
[2018-06-09 21:00] VITALS: BP 150/80
--- NOTE | 2018-06-09 21:09 | NUR ---
58 YO F BIB SELF PRESENTS TO THE ED C/O SHARP 8/10 INTERMITTENT LOWER ABD PAIN THAT RADIATES TO LOWER BACK X 2 DAYS ACCOMPANIED BY HEARTBURN. PT DENIES NVD, CHEST PAIN, SOB. LAST BM: TODAY. DENIES DYSURIA, URINARY BURNING. -- ABD IS LARGE, SOFT, TENDER TO TOUCH. NO REBOUND TENDERNESS NOTED. BOWEL SOUNDS ACTIVE, PRESENT TO ALL 4 QUADRANTS. -- SKIN PINK, DRY, WARM. PMH-- CIRHOSSIS, HTN, DEPRESSION, ANXIETY. PT POSITIONED FOR COMFORT. HOB ELEVATED. SIDE RAIL UP X1. BED IN LOWEST POSITION. VSS. NO APPARENT DISTRESS AT THIS TIME.
[2018-06-09] MEDS ORDERED: DICYCLOMINE HCL LIQUID 20 MG, ALUMINUM HYD/MAG/SIMETHICONE 30 ML, LIDOCAINE VISCOUS 2% ... PO ONE ×3 (21:15)
[2018-06-09] MEDS ORDERED: KETOROLAC 30 MG/ML VIAL IM ONE (21:15)
[2018-06-09 21:31] LABS: APPEARANCE,URINE HAZY (CLEAR); COLOR,URINE YELLOW (YELLOW)
[2018-06-09 21:33] LABS: BILIRUBIN,URINE NEGATIVE (NEGATIVE); BLOOD, URINE 1+ (NEGATIVE); LEUKOCYTE ESTERASE ,URINE NEGATIVE (NEGATIVE); NITRITE, URINE NEGATIVE (NEGATIVE); PH,URINE 6.5 (5.0-9.0); UGLUCOSE NEGATIVE (NEGATIVE)
[2018-06-09 21:33] LABS: BASOPHILS % (AUTO) 0.7 % (0.0-2.0); EOSINOPHILS # (AUTO) 0.1 K/uL (0-0.4); EOSINOPHILS % (AUTO) 4.4 % (0.0-4.0); HEMATOCRIT 30.3 % (36-48); HEMOGLOBIN 10.5 g/dL (12.0-16.0); LYMPHOCYTES # (AUTO) 0.9 K/uL (2.5-16.5); LYMPHOCYTES % (AUTO) 29.6 % (20.5-51.1); MEAN CORPUSCULAR HEMOGLOBIN 34 pg (27-31); MEAN CORPUSCULAR HGB CONC 35 g/dL (33-37); MEAN CORPUSCULAR VOLUME 99.1 fL (80-94); MONOCYTES # (AUTO) 0.4 K/uL (0.8-1.0); MONOCYTES % (AUTO) 14.3 % (1.7-9.3); NEUTROPHILS # (AUTO) 1.6 K/uL (1.8-7.7); PLATELET COUNT (AUTO) 103 K/uL (140-450); RED BLOOD CELL COUNT(AUTO) 3.06 MIL/uL (4.20-5.40); RED CELL DISTRIBUTION WIDTH 14.3 % (11.6-13.7); WHITE BLOOD COUNT (AUTO) 3.1 K/uL (4.8-10.8)
--- NOTE | 2018-06-09 21:35 | NUR ---
PT TAKEN TO CT VIA RGUS.
[2018-06-09 21:42] LABS: WBC,URINE 0-5 /HPF (0-5)
--- NOTE | 2018-06-09 21:44 | NUR ---
PT RETURN FROM CT
[2018-06-09 21:46] LABS: ANION GAP 11.3 (8-16); CARBON DIOXIDE 25.8 mmol/L (21-32); POTASSIUM 4.1 mmol/L (3.5-5.1)
[2018-06-09 21:59] LABS: ALBUMIN 2.8 g/dL (3.4-5.0); TOTAL BILIRUBIN 0.7 mg/dL (0.0-1.0)
--- NOTE | 2018-06-09 22:08 | NUR ---
PT MOVED TO ER BED 8
[2018-06-09] MEDS ORDERED: MORPHINE SULFATE 4 MG/ML SYR IM ONE (22:15)
--- NOTE | 2018-06-09 22:22 | NUR ---
Ultrasound at bedside.
[2018-06-09 23:28] VITALS: BP 140/70
== END 2018-06-09 23:38 | disposition home or self-care (01) ==
LOC: MED 20:49
DX: K59.00 Constipation, unspecified (principal); D61.818 Other pancytopenia; K74.60 Unspecified cirrhosis of liver; J45.909 Unspecified asthma, uncomplicated; K21.9 Gastro-esophageal reflux disease without esophagitis; I10 Essential (primary) hypertension; Z79.2 Long term (current) use of antibiotics; Z79.899 Other long term (current) drug therapy; Z88.6 Allergy status to analgesic agent; Z91.018 Allergy to other foods
CPT/HCPCS: 36415; 74176; 76770; 80053; 81001; 81025; 83690; 85025; 87086; 96372; 99284; J1885; J2270; Q0092

== ENCOUNTER 2018-12-24 09:14 | Emergency (ER) | payer MEDICAID, OTHER ==
[~2018-12-24] VITALS: Ht 165.1 cm; Wt 122.5 kg
[2018-12-24 09:18] VITALS: BP 147/67
--- NOTE | 2018-12-24 09:21 | NUR ---
PT AMBULATED TO RESTROOM TO PROVIDE URINE SAMPLE
--- NOTE | 2018-12-24 09:25 | NUR ---
58 Y/O F PRESENTS TO ER C/O GENERALIZED ABDOMINAL PAIN SINCE 8AM. PAIN LEVEL 9/10, SHARP CONSTANT PAIN. DENIES N/V/D. PT ALSO C/O WAKING UP LIGHTHEADED AND SHAKINESS. PT ALSO REPORTS THAT SHE "FELT FORGETFUL" WHEN SHE AWOKE. CURRENTLY A&O X4. ANSWERING QUESTIONS APPROPRIATELY. PT ALSO C/O BURNING UPON URINATION X2DAYS, FREQUENCY. ALLERGIES: TYLENOL MED HX: ASTHMA, HTN, ANXIETY, AND DEPRESSION
[2018-12-24] MEDS ORDERED: KETOROLAC 60 MG/2 ML VIAL IM ONE (09:35)
[2018-12-24 10:17] LABS: APPEARANCE,URINE HAZY (CLEAR); BLOOD, URINE 3+ (NEGATIVE); COLOR,URINE ORANGE (YELLOW); PH,URINE 6.5 (5.0-9.0); UGLUCOSE NEGATIVE (NEGATIVE)
[2018-12-24 10:18] LABS: BILIRUBIN,URINE 1+ (NEGATIVE); LEUKOCYTE ESTERASE ,URINE NEGATIVE (NEGATIVE); NITRITE, URINE POSITIVE (NEGATIVE)
[2018-12-24 10:20] LABS: RBC,URINE 50-80 /HPF (0-5); WBC,URINE 0-5 /HPF (0-5)
--- NOTE | 2018-12-24 10:50 | NUR ---
PAIN LEVEL 9/10. ERMD MADE AWARE.
[2018-12-24 10:51] LABS: EOSINOPHILS # (AUTO) 0.1 K/uL (0-0.4); EOSINOPHILS % (AUTO) 3.4 % (0.0-4.0); HEMATOCRIT 34.4 % (36-48); HEMOGLOBIN 11.9 g/dL (12.0-16.0); LYMPHOCYTES # (AUTO) 0.9 K/uL (2.5-16.5); LYMPHOCYTES % (AUTO) 27.7 % (20.5-51.1); MEAN CORPUSCULAR HEMOGLOBIN 34 pg (27-31); MEAN CORPUSCULAR HGB CONC 35 g/dL (33-37); MONOCYTES # (AUTO) 0.4 K/uL (0.8-1.0); NEUTROPHILS # (AUTO) 1.8 K/uL (1.8-7.7); NEUTROPHILS % (AUTO) 55.9 % (42.2-75.2); PLATELET COUNT (AUTO) 122 K/uL (140-450); RED BLOOD CELL COUNT(AUTO) 3.47 MIL/uL (4.20-5.40); RED CELL DISTRIBUTION WIDTH 14.5 % (11.6-13.7); WHITE BLOOD COUNT (AUTO) 3.2 K/uL (4.8-10.8)
[2018-12-24 11:02] LABS: ANION GAP 13.1 (8-16); CARBON DIOXIDE 25.1 mmol/L (21-32); POTASSIUM 4.2 mmol/L (3.5-5.1)
[2018-12-24 11:05] LABS: PROTHROMBIN TIME 11.1 secs (10.8-13.4)
[2018-12-24 11:19] LABS: TOTAL BILIRUBIN 1.1 mg/dL (0.0-1.0)
--- NOTE | 2018-12-24 11:20 | NUR ---
PT RESTING IN BED, VSS. ROOMMATE AT BEDSIDE. WILL CONTINUE TO MONITOR.
[2018-12-24 12:39] VITALS: BP 130/60
--- NOTE | 2018-12-24 12:39 | NUR ---
Patient discharged with v/s stable. Written and verbal after care instructions given and explained. Patient alert, oriented and verbalized understanding of instructions. Ambulatory with steady gait. All questions addressed prior to discharge. ID band removed. Patient advised to follow up with PMD. Pt advised to double her lactulose dose for the next 3 doses. Pt verbalized understanding. Rx of Macrobid 100mg and Naprosyn 250mg given. Patient educated on indication of medication including possible reaction and side effects. Opportunity to ask questions provided and answered.
== END 2018-12-24 12:39 | disposition home or self-care (01) ==
LOC: MED 09:14
DX: N39.0 Urinary tract infection, site not specified (principal); D64.9 Anemia, unspecified; Z87.19 Personal history of other diseases of the digestive system; J45.909 Unspecified asthma, uncomplicated; K21.9 Gastro-esophageal reflux disease without esophagitis; I10 Essential (primary) hypertension; Z90.49 Acquired absence of other specified parts of digestive tract; Z98.890 Other specified postprocedural states; Z79.899 Other long term (current) drug therapy; Z91.018 Allergy to other foods; Z88.6 Allergy status to analgesic agent
CPT/HCPCS: 36415; 80053; 81001; 82140; 85025; 85610; 85730; 87086; 93005; 96372; 99284; J1885